=== PATIENT | female | born 1995 | race Caucasian/White ===

== ENCOUNTER 2018-10-03 12:55 | Emergency (ER) | payer MEDICAID ==
[~2018-10-03] VITALS: Wt 69.8 kg
[2018-10-03 13:07] VITALS: BP 121/76; PULSE 95; RESP 20
[2018-10-03] MEDS ORDERED: ONDA4TAB8 PO (14:40)
[2018-10-03] MEDS ORDERED: IBUP-1542 PO (14:40)
--- NOTE | 2018-10-03 14:42 | ERD ---
ER Documentation Chief Complaint Chief Complaint vomiting+ LOONEY since Sun; tolerating fluids. no diarrhea. no AP. HPI 23-year-old female presents the emergency department with her family for evaluation of headache and vomiting. Patient states that over the last 2 to 3 days, she has had the above symptoms. The headache is not acute in onset or thunderclap in nature and is associated with no focal weakness or numbness. She has had a nonspecific low-grade fever and nonbilious, nonbloody emesis. She reports no diarrhea or abdominal pain. She reports no dysuria or hematuria. ROS All systems reviewed and are negative except as per history of present illness. Medications Home Meds Active Scripts Ibuprofen* (Motrin*) 600 Mg Tab, 600 MG PO Q6H PRN for PAIN AND OR ELEVATED TE MP, #30 TAB Prov:SHRADDHA FARRELL 10/03/18 Ondansetron Hcl* (Zofran*) 4 Mg Tablet, 4 MG PO Q8H PRN for NAUSEA AND/OR VOMITING, #30 TAB Prov:SHRADDHA FARRELL 10/03/18 Allergies Allergies: Coded Allergies: No Known Allergy (Unverified , 10/03/18) PMhx/Soc Medical and Surgical Hx: pt denies Medical Hx, pt denies Surgical Hx Hx Alcohol Use: No Hx Substance Use: No Hx Tobacco Use: No Smoking Status: Never smoker FmHx Noncontributory for chief complaint Physical Exam Vitals Vital Signs Date Temp Pulse Resp B/P (MAP) Pulse Ox O2 O2 Flow FiO2 Time Delivery Rate 10/03/18 99.5 95 20 121/76 97 13:07 (91) Physical Exam GENERAL: The patient is well developed and appropriate for usual state of health in no apparent distress HEENT: Pupils equal, round, and reactive to light. EOMI. There is no scleral icterus. NECK: C-spine is soft and supple, there is no meningismus. There is no cervical lymphadenopathy. LUNGS: Clear to auscultation bilaterally. There are no rales, wheezes or rhonchi. HEART: Regular rate and rhythm, no murmurs, clicks, rubs or gallops. ABDOMEN: Soft, non-tender, non-distended. There are bowel sounds in all four quadrants. No rebound or guarding. EXTREMITIES: There is no peripheral cyanosis or edema. No focal swelling or erythema. NEURO: The patient moves all four extremities with 5/5 strength. Cranial nerves II - XII are intact. Normal gait. Alert and oriented SKIN: There is no apparent rash or petechiae. HEME/LYMPHATIC: There is no evidence of excessive bruising or lymphedema. PSYCHIATRIC: The patient does not appear anxious or depressed. Result Diagram: 10/03/18 1338 10/03/18 1338 Results 24 hrs Laboratory Tests Test 10/03/18 13:38 White Blood Count 5.1 10^3/ul Red Blood Count 4.46 10^6/ul Hemoglobin 14.0 g/dl Hematocrit 41.4 % Mean Corpuscular Volume 92.8 fl Mean Corpuscular Hemoglobin 31.4 pg Mean Corpuscular Hemoglobin Concent 33.8 g/dl Red Cell Distribution Width 12.6 % Platelet Count 259 10^3/UL Mean Platelet Volume 9.8 fl Immature Granulocytes % 0.000 % Neutrophils % 57.7 % Lymphocytes % 36.2 % Monocytes % 5.5 % Eosinophils % 0.2 % Basophils % 0.4 % Nucleated Red Blood Cells % 0.0 /100WBC Immature Granulocytes # 0.000 10^3/ul Neutrophils # 2.9 10^3/ul Lymphocytes # 1.8 10^3/ul Monocytes # 0.3 10^3/ul Eosinophils # 0.0 10^3/ul Basophils # 0.0 10^3/ul Nucleated Red Blood Cells # 0.0 10^3/ul Urine Color YELLOW Urine Clarity SLIGHTLY CLOUDY Urine pH 5.0 Urine Specific [place] 1.024 Urine Ketones TRACE mg/dL Urine Nitrite NEGATIVE mg/dL Urine Bilirubin NEGATIVE mg/dL Urine Urobilinogen NEGATIVE mg/dL Urine Leukocyte Esterase NEGATIVE Billie/ul Urine Microscopic RBC 1 /HPF Urine Microscopic WBC 2 /HPF Urine Mucus FEW /HPF Urine Hemoglobin 2+ mg/dL Urine Glucose NEGATIVE mg/dL Urine Total Protein NEGATIVE mg/dl Sodium Level 142 mmol/L Potassium Level 4.1 mmol/L Chloride Level 104 mmol/L Carbon Dioxide Level 28 mmol/L Anion Gap 10 Blood Urea Nitrogen 8 mg/dl Creatinine 0.59 mg/dl Est Glomerular Filtrat Rate mL/min > 60 mL/min Glucose Level 95 mg/dl Calcium Level 9.5 mg/dl Total Bilirubin 0.3 mg/dl Direct Bilirubin 0.00 mg/dl Indirect Bilirubin 0.3 mg/dl Aspartate Amino Transf (AST/SGOT) 36 IU/L Alanine Aminotransferase (ALT/SGPT) 33 IU/L Alkaline Phosphatase 52 IU/L Total Protein 8.1 g/dl Albumin 4.7 g/dl Globulin 3.40 g/dl Albumin/Globulin Ratio 1.38 Lipase 48 U/L Serum HCG, Qualitative NEGATIVE Procedures/MDM Patient was taken to a room, seen and evaluated. Comfort measures were initiated. Diagnostic tests were ordered and reviewed. RADIOLOGY: Reviewed with the radiologist REEVALUATION: Remained nontoxic in the emergency department. Diagnostic tests were appreciated and discussed with the patient MEDICAL DECISION MAKIN-year-old nontoxic female presents the emergency department with nonspecific headache and vomiting. Her abdominal examination is benign with no evidence of appendicitis, cholecystitis or other high-risk concerns. She is had multiple repeat evaluations of her abdomen. She is a nonspecific headache, but no evidence of intracranial concerns, neurologic issues and certainly has no evidence of meningitis based on clinical examination. Overall, patient appears to be clinically well and appropriate for outpatient supportive care. Departure Diagnosis: Primary Impression: Headache Condition: Stable Patient Instructions: Self-Care for Headaches Additional Instructions: Consulte a mendez mdico para el seguimiento segn lo discutido. Lleve veda copia de los resultados de mendez prueba, si corresponde, a esta visita de seguimiento. Consulte a mendez mdico o regrese aqu si jeffrey sntomas no mejoran shelbie se esperaba. En cualquier momento, regrese al departamento de emergencias por cualquier cambio o empeoramiento en jeffrey sntomas. SHRADDHA FARRELL October 03, 2018 14:42
== END 2018-10-03 16:07 | disposition home or self-care (01) ==
LOC: FTE 12:55
DX: R51 Headache (principal); R11.10 Vomiting, unspecified
CPT/HCPCS: 36415; 70450; 80053; 81001; 83690; 84703; 85025; Z7502